=== PATIENT | female | born 1975 | race Two or more races ===

== ENCOUNTER 2017-01-26 15:03 | Inpatient (IN) | payer BC ==
[~2017-01-26] VITALS: Ht 157.5 cm; Wt 85.5 kg
[2017-01-26 15:59] VITALS: BP 118/68
[2017-01-26] MEDS ORDERED: AMPICILLIN/SULBACTAM 1.5 GM in IV NORMAL SALINE 50ML 50 ML IV ONE (16:30)
[2017-01-26] MEDS: ALPRAZolam 1 MG TABLET PO PRN (16:42)
[2017-01-26] MEDS: IPRATRPIUM/ALBUTEROL 0.5/2.5MG 3 ML NEBU. NEB SCH ×2 (16:42→20:44)
[2017-01-26 17:44] LABS: BASO % 0 % (0-3); EOS % 0 % (0-3); LYMPH # 1.6 x10^3/uL (1.0-4.8); LYMPH % 13 % (24-48); MEAN CORPUSCULAR HEMOGLOBIN 30 pg (25-35); MEAN CORPUSCULAR HGB CONC 34 g/dL (31-37); MEAN CORPUSCULAR VOLUME 86 fL (79-100); MONO % 2 % (0-9); NEUT % 84 % (31-73); PLATELET COUNT 243 x10^3/uL (140-400); RED BLOOD COUNT 3.71 x10^6/uL (3.50-5.40); RED CELL DISTRIBUTION WIDTH 13.8 % (11.5-14.5); WHITE BLOOD COUNT 12.2 x10^3/uL (4.0-11.0)
[2017-01-26] MEDS ORDERED: ALPR1TAB2 PO (17:58)
[2017-01-26] MEDS ORDERED: PANT40TA5 PO (17:58)
[2017-01-26] MEDS ORDERED: IV DEXTROSE 5 %-0.45 % NACL 1,000 ML IV SCH (18:00)
[2017-01-26] MEDS ORDERED: PANTOPRAZOLE 40 MG TABLET.DR. PO SCH (18:00)
[2017-01-26] MEDS: PANTOPRAZOLE 40 MG TABLET.DR. PO SCH (18:04)
[2017-01-26 18:17] LABS: ALBUMIN/GLOBULIN RATIO 0.7 (1.0-1.7); CREATININE 1.8 mg/dL (0.6-1.0); TOTAL BILIRUBIN 0.4 mg/dL (0.2-1.0); TOTAL PROTEIN 7.5 g/dL (6.4-8.2)
[2017-01-26 18:18] LABS: POTASSIUM 2.9 mmol/L (3.5-5.1)
[2017-01-26] MEDS ORDERED: POTASSIUM CL 30MEQ D5-0.45NACL 1,000 ML IV PRN (18:30)
[2017-01-26 19:00] VITALS: BP 84/52
[2017-01-26] MEDS: POTASSIUM CL 30MEQ D5-0.45NACL 1,000 ML IV SCH (20:25)
[2017-01-26 22:29] VITALS: BP 94/57
[2017-01-26] MEDS: AMPICILLIN/SULBACTAM 1.5 GM in IV NORMAL SALINE 50ML 50 ML IV SCH (23:45)
[2017-01-27] MEDS ORDERED: TRAZ100T12 PO (00:48)
[2017-01-27] MEDS ORDERED: METH-38 PO (00:48)
[2017-01-27] MEDS ORDERED: CETI10TA22 PO (00:48)
[2017-01-27] MEDS ORDERED: TAPE75TA2 PO (00:48)
[2017-01-27] MEDS ORDERED: MECL25TA3 PO (00:48)
[2017-01-27] MEDS ORDERED: TAPE100T6 PO (00:48)
[2017-01-27] MEDS ORDERED: PROP20TA PO (00:48)
[2017-01-27] MEDS ORDERED: FLUT9.9S NS (00:48)
[2017-01-27] MEDS ORDERED: SUVO20TA PO (00:48)
[2017-01-27] MEDS ORDERED: NALO0.4A3 IJ (00:48)
[2017-01-27] MEDS ORDERED: DICL100G24 TP (00:48)
[2017-01-27] MEDS ORDERED: NAPR375T3 PO (00:48)
[2017-01-27] MEDS ORDERED: PROAIR HFA8.5 GM INH (00:48)
[2017-01-27] MEDS ORDERED: AMIT50TA PO (00:48)
[2017-01-27] MEDS ORDERED: METHOCARBAMOL 750 MG TABLET PO PRN (01:00)
[2017-01-27] MEDS ORDERED: DICLOFENAC SODIUM 1% TOPICAL GEL 100GM TUBE. TP PRN ×2 (01:00→01:15)
[2017-01-27] MEDS ORDERED: NALOXONE HCL IJ PRN (01:00)
[2017-01-27] MEDS ORDERED: NAPROXEN PO PRN (01:00)
[2017-01-27] MEDS ORDERED: PROPRANOLOL HCL PO PRN (01:00)
[2017-01-27] MEDS ORDERED: NON FORMULARY ITEM (Meclizine Hcl 1 TAB) PO SCH (01:00)
[2017-01-27] MEDS ORDERED: NALOXONE 0.4 MG/ML VIAL. IV ONE (01:15)
[2017-01-27] MEDS ORDERED: MECLIZINE HCL 12.5 MG TABLET. PO PRN (01:15)
[2017-01-27] MEDS ORDERED: PROPRANOLOL 10 MG TABLET. PO PRN (01:15)
[2017-01-27] MEDS ORDERED: NAPROXEN 250 MG TABLET PO PRN (01:15)
[2017-01-27] MEDS: ALPRAZolam 1 MG TABLET PO PRN ×2 (01:20→14:22)
[2017-01-27] MEDS ORDERED: NALOXONE 0.4 MG/ML VIAL. IV PRN (01:30)
[2017-01-27] MEDS ORDERED: NAPROXEN 500 MG TABLET PO PRN (01:45)
[2017-01-27 02:39] VITALS: BP 93/59
[2017-01-27] MEDS: AMPICILLIN/SULBACTAM 1.5 GM in IV NORMAL SALINE 50ML 50 ML IV SCH ×4 (06:10→23:34)
--- NOTE | 2017-01-27 06:35 | HP ---
ADMIT DATE: 01/26/2017 CHIEF COMPLAINT: Fever, cough and malaise. HISTORY OF PRESENT ILLNESS: A 41-year-old white female, new patient to me, has had cough and general malaise for 2 weeks and getting worse the last few days. She was seen in our office on 01/25/2017. Chest x-ray showing a right upper lobe infiltrate of fairly severe nature. She was asked to come back in to be evaluated and probably admitted to the hospital for confusion, weakness and severity of illness. She has had some intermittent dysphagia over the last several weeks along with a lot of heartburn, but does not recall any recent vomiting or possible aspiration. She denies hemoptysis, chest pain or other systemic symptoms. PAST MEDICAL HISTORY: Surgically, she has had a cholecystectomy, cervical spine nerve ablation, hysterectomy with 1 ovary removed. No other serious surgeries. Medically, she has a history of multiple sclerosis and sees at the a neurologist and a history of chronic nonmalignant pain and is followed by a pain specialist for which she takes Nucynta and other meds as listed. ALLERGIES: Unknown to drugs. IMMUNIZATIONS: Pneumovax is up-to-date. SOCIAL HISTORY: She has smoked since she was about 15 or 16. She is currently using the vapor system, nondrinker, , not employed. FAMILY HISTORY: Unremarkable. REVIEW OF SYSTEMS: No other complaints. OBJECTIVE: HEENT: ____ cavities and missing teeth present. No pharyngeal lesions. Eyes and ears normal. NECK: Revealed no nodes, masses or thyroid enlargement or bruits. LUNGS: Decreased breath sounds in both bases and right upper lobe. No wheezing or tachypnea is noted. CARDIOVASCULAR: Regular rate. No tachycardia or murmur. ABDOMEN: Soft, benign and nontender. EXTREMITIES: Good pedal and radial pulses, 1+ clubbing is noted. SKIN: Turgor is normal. NEUROLOGIC: She has some halting of her speech, but there are no overt focal findings. Mentation, mental status and cranial nerves appear to be intact. GENITOURINARY AND RECTAL: Deferred. ASSESSMENT: 1. Right upper lobe pneumonia. The possibilities of aspiration certainly must be considered given her dysphagia, acid reflux and neurologic issues. 2. Chronic nonmalignant pain, cervical, on high dose of Nucynta. 3. Chronic tobacco use. 4. History of multiple sclerosis and nonspecific psychiatric disorder. PLAN: IV Unasyn, CT scan, Protonix and evaluation for the possibilities of aspiration as the etiology for this versus underlying pulmonary lesion. ADALGISA HEREDIA MD DR: OLY/hans JOB#: [id number] / [id number]
[2017-01-27 07:00] VITALS: BP 93/56
[2017-01-27] MEDS ORDERED: PANTOPRAZOLE 40 MG TABLET.DR. PO SCH (07:30)
[2017-01-27] MEDS: IPRATRPIUM/ALBUTEROL 0.5/2.5MG 3 ML NEBU. NEB SCH ×4 (07:32→20:03)
--- NOTE | 2017-01-27 08:17 | RAD ---
CT of the chest without contrast, 01/26/2017: History: Right upper lobe pneumonia Noncontrast scans were obtained as requested. No previous studies are available at this time for correlative purposes. The thoracic aorta is unremarkable. The heart is at the upper limits of normal in size. No mediastinal adenopathy is seen. There is a small amount of retained material in the upper thoracic esophagus. There is dense consolidation in the inferolateral aspect of the right upper lobe with air bronchograms. No centrally obstructing bronchial lesion is seen. There is mild infiltrate in the left upper lobe and mild hazy groundglass opacities in the lung bases. No pleural fluid is evident. There is diffuse fatty infiltration of the liver. The gallbladder is surgically absent. IMPRESSION: 1. Dense consolidation in the right upper lobe with additional mild patchy infiltrates in other portions of both lungs, most compatible with pneumonia. 2. Hepatic steatosis . PQRS Compliance Statement: One or more of the following individualized dose reduction techniques were utilized for this examination: 1. Automated exposure control 2. Adjustment of the mA and/or kV according to patient size 3. Use of iterative reconstruction technique
[2017-01-27] MEDS: TAPENTADOL HCL 150 MG PO SCH ×2 (08:19→22:06)
[2017-01-27] MEDS: PANTOPRAZOLE 40 MG TABLET.DR. PO SCH ×2 (08:20→16:43)
[2017-01-27] MEDS: TAPENTADOL HCL PO PRN ×3 (08:21→22:09)
[2017-01-27] MEDS: FLUTICASONE 50MCG/NASAL SPRAY 16GM BOTTLE. NS SCH (08:22)
--- NOTE | 2017-01-27 08:23 | PDOC ---
Provider Note Provider Note vss, no temp, feels a little better w/ pleuritic R upper chest pain- K+ low 2.9 , creat 1.8, ? baseline- ct pending re RUL infiltrate- cont unasyn as poss aspiration etiology, iv fluids - hold nsaid re ckd ADALGISA HEREDIA MD January 27, 2017 08:23
[2017-01-27] MEDS ORDERED: NON FORMULARY ITEM (Fluticasone Propionate (Flonase Allergy Relief) 2 SPRAYS) NS SCH (09:00)
[2017-01-27] MEDS ORDERED: CETIRIZINE HCL 10 MG TABLET. PO SCH (09:00)
[2017-01-27] MEDS: POTASSIUM CL 30MEQ D5-0.45NACL 1,000 ML IV SCH ×2 (09:52→23:34)
[2017-01-27 10:51] VITALS: BP 99/59
[2017-01-27] MEDS: METHOCARBAMOL 750 MG TABLET PO PRN (14:22)
[2017-01-27 15:00] VITALS: BP 106/72
[2017-01-27 19:00] VITALS: BP 94/55
[2017-01-27] MEDS ORDERED: AMITRIPTYLINE HCL 50 MG TABLET PO SCH ×2 (21:00)
[2017-01-27] MEDS: AMITRIPTYLINE HCL 50 MG TABLET PO SCH (22:05)
[2017-01-27] MEDS: traZODone 100 MG TABLET. PO SCH (22:05)
[2017-01-27] MEDS: NON FORMULARY ITEM (Suvorexant (Belsomra) 20 MG) PO SCH (22:06)
[2017-01-27 23:00] VITALS: BP 103/63
[2017-01-28 02:34] VITALS: BP 108/70
[2017-01-28] MEDS: ALPRAZolam 1 MG TABLET PO PRN ×2 (02:36→23:59)
[2017-01-28] MEDS: METHOCARBAMOL 750 MG TABLET PO PRN (02:37)
[2017-01-28 05:08] LABS: CALCIUM 8.5 mg/dL (8.5-10.1); CREATININE 1.2 mg/dL (0.6-1.0); GFR 49.5; POTASSIUM 3.4 mmol/L (3.5-5.1)
[2017-01-28] MEDS: AMPICILLIN/SULBACTAM 1.5 GM in IV NORMAL SALINE 50ML 50 ML IV SCH ×4 (06:23→23:54)
[2017-01-28 07:00] VITALS: BP 94/60
[2017-01-28] MEDS: IPRATRPIUM/ALBUTEROL 0.5/2.5MG 3 ML NEBU. NEB SCH ×4 (07:01→19:48)
[2017-01-28] MEDS: TAPENTADOL HCL PO PRN ×3 (08:26→22:29)
[2017-01-28] MEDS: PANTOPRAZOLE 40 MG TABLET.DR. PO SCH ×2 (08:26→16:56)
[2017-01-28] MEDS: TAPENTADOL HCL 150 MG PO SCH ×2 (08:26→20:14)
[2017-01-28] MEDS: FLUTICASONE 50MCG/NASAL SPRAY 16GM BOTTLE. NS SCH (08:27)
--- NOTE | 2017-01-28 08:47 | PDOC ---
Provider Note Provider Note feels a little better , some prod cough- no temp, renal/K+ better- will have pulm see her re ? bronchscopy re unusual RUL infiltrate, ? aspiration, fb, endobronchial mass- cont ADALGISA Hart MD January 28, 2017 08:47
[2017-01-28 11:00] VITALS: BP 113/71
--- NOTE | 2017-01-28 12:08 | PDOC ---
PULMONARY PROGRESS NOTES Vitals Vital Signs Date Time Temp Pulse Resp B/P (MAP) Pulse Ox O2 Delivery O2 Flow Rate FiO2 01/28/17 11:02 Room Air 01/28/17 11:00 98.2 75 20 113/71 (85) 95 98.2 Labs Laboratory Tests Test 01/26/17 17:30 01/28/17 03:35 White Blood Count 12.2 x10^3/uL (4.0-11.0) Red Blood Count 3.71 x10^6/uL (3.50-5.40) Hemoglobin 11.0 g/dL (12.0-15.5) Hematocrit 32.0 % (36.0-47.0) Mean Corpuscular Volume 86 fL (79-100) Mean Corpuscular Hemoglobin 30 pg (25-35) Mean Corpuscular Hemoglobin Concent 34 g/dL (31-37) Red Cell Distribution Width 13.8 % (11.5-14.5) Platelet Count 243 x10^3/uL (140-400) Neutrophils (%) (Auto) 84 % (31-73) Lymphocytes (%) (Auto) 13 % (24-48) Monocytes (%) (Auto) 2 % (0-9) Eosinophils (%) (Auto) 0 % (0-3) Basophils (%) (Auto) 0 % (0-3) Neutrophils # (Auto) 10.3 x10^3uL (1.8-7.7) Lymphocytes # (Auto) 1.6 x10^3/uL (1.0-4.8) Monocytes # (Auto) 0.3 x10^3/uL (0.0-1.1) Eosinophils # (Auto) 0.0 x10^3/uL (0.0-0.7) Basophils # (Auto) 0.0 x10^3/uL (0.0-0.2) Sodium Level 137 mmol/L (136-145) 142 mmol/L (136-145) Potassium Level 2.9 mmol/L (3.5-5.1) 3.4 mmol/L (3.5-5.1) Chloride Level 99 mmol/L (98-107) 105 mmol/L (98-107) Carbon Dioxide Level 26 mmol/L (21-32) 26 mmol/L (21-32) Anion Gap 12 (6-14) 11 (6-14) Blood Urea Nitrogen 22 mg/dL (7-20) 7 mg/dL (7-20) Creatinine 1.8 mg/dL (0.6-1.0) 1.2 mg/dL (0.6-1.0) Estimated GFR (Cockcroft-Gault) 31.0 49.5 BUN/Creatinine Ratio 12 (6-20) Glucose Level 120 mg/dL (70-99) 130 mg/dL (70-99) Calcium Level 9.0 mg/dL (8.5-10.1) 8.5 mg/dL (8.5-10.1) Total Bilirubin 0.4 mg/dL (0.2-1.0) Aspartate Amino Transf (AST/SGOT) 23 U/L (15-37) Alanine Aminotransferase (ALT/SGPT) 42 U/L (14-59) Alkaline Phosphatase 159 U/L (46-116) Total Protein 7.5 g/dL (6.4-8.2) Albumin 3.0 g/dL (3.4-5.0) Albumin/Globulin Ratio 0.7 (1.0-1.7) Laboratory Tests Test 01/28/17 03:35 Sodium Level 142 mmol/L (136-145) Potassium Level 3.4 mmol/L (3.5-5.1) Chloride Level 105 mmol/L (98-107) Carbon Dioxide Level 26 mmol/L (21-32) Anion Gap 11 (6-14) Blood Urea Nitrogen 7 mg/dL (7-20) Creatinine 1.2 mg/dL (0.6-1.0) Estimated GFR (Cockcroft-Gault) 49.5 Glucose Level 130 mg/dL (70-99) Calcium Level 8.5 mg/dL (8.5-10.1) Medications Active Scripts Medications Dose Route/Sig Max Daily Dose Days Date Category Evzio (Naloxone HCl) 0.4 Mg/0.4 Ml Auto.injct 0.4 Mg IJ PRN PRN 01/27/17 Reported Proair Hfa Inhaler (Albuterol Sulfate) 8.5 Gm Hfa.aer.ad 1 Puff INH PRN Q6HRS PRN 01/27/17 Reported Belsomra (Suvorexant) 20 Mg Tablet 20 Mg PO QHS 01/27/17 Reported Diclofenac Sodium 100 Gm Gel..gram. 100 Gm TP PRN TID PRN 01/27/17 Reported Amitriptyline Hcl 50 Mg Tablet 1-3 Tab PO QHS 01/27/17 Reported Naproxen 375 Mg Tablet 220-660 Mg PO PRN BID PRN 01/27/17 Reported Flonase Allergy Relief (Fluticasone Propionate) 9.9 Ml [place].susp 2 Sprays NS DAILY 01/27/17 Reported Zyrtec (Cetirizine Hcl) 10 Mg Tablet 1 Tab PO DAILY 01/27/17 Reported Meclizine Hcl 25 Mg Tablet 1 Tab PO PRN TID 01/27/17 Reported Propranolol Hcl 20 Mg Tablet 1 Tab PO PRN BID PRN 01/27/17 Reported Trazodone Hcl 100 Mg Tablet 1 Tab PO QHS 01/27/17 Reported Nucynta (Tapentadol Hcl) 75 Mg Tablet 1 Tab PO PRN QID PRN 01/27/17 Reported Nucynta Er (Tapentadol Hcl) 100 Mg Tab.er.12h 150 Mg PO BID 01/27/17 Reported Robaxin-750 (Methocarbamol) 750 Mg Tablet 2 Tab PO PRN TID 01/27/17 Reported Xanax (Alprazolam) 1 Mg Tablet 1 Tab PO PRN BID PRN 01/26/17 Reported Pantoprazole Sodium 40 Mg Tablet. 1 Tab PO BIDAC 01/26/17 Reported Impression . FULL NOTE DICTATED WILL PROCEED WITH BRONCH TODAY RULE OUT POST OBSTRUCTIVE PNEUMONIAE ADILSON HUBBARD MD January 28, 2017 12:08
[2017-01-28] MEDS: IV RINGERS,LACTATED 1000ML 1,000 ML IV SCH ×2 (13:30→23:55)
[2017-01-28] MEDS ORDERED: PROPOFOL 20 ML IV ONE (13:39)
[2017-01-28 15:00] VITALS: BP 116/70
[2017-01-28 19:00] VITALS: BP 110/78
[2017-01-28] MEDS: AMITRIPTYLINE HCL 50 MG TABLET PO SCH (20:13)
[2017-01-28] MEDS: traZODone 100 MG TABLET. PO SCH (20:14)
[2017-01-28] MEDS: NON FORMULARY ITEM (Suvorexant (Belsomra) 20 MG) PO SCH (20:14)
[2017-01-28 22:58] VITALS: BP 121/70
--- NOTE | 2017-01-29 02:38 | CONS ---
DATE OF CONSULTATION: 01/28/2017 ATTENDING PHYSICIAN: Dr. Ricardo Lantigua. CONSULTING PHYSICIAN: Dr. Adilson Hubbard. REASON FOR CONSULTATION: The patient seen in pulmonary consultation at the request of Dr. Lantigua for abnormal CT of the chest revealing consolidated right upper lobe, in addition, the patient has had recurrent bouts of pneumonia. HISTORY OF PRESENT ILLNESS: The patient is a 41-year-old, has had pneumonia according to her ____. She was seen in followup and things had improved. She then had some increasing shortness of breath. She had a repeat chest x-ray, which revealed recurrent pneumonia. Yesterday, she underwent a CT of the chest. I personally reviewed that there is a right upper lobe consolidated mass. There is also patchy infiltrates on the left side. I was asked to see her in consultation. PAST MEDICAL HISTORY: The patient does have a history of possible multiple sclerosis. She is having workup. She is also having some difficulty with dysphagia. PAST SURGICAL HISTORY: Status post cholecystectomy, . She has had previous cervical spine nerve ablation, hysterectomy and oophorectomy. ALLERGIES: No known drug allergies. IMMUNIZATION HISTORY: She is up to date on Pneumovax. SOCIAL HISTORY: She continues to smoke 1 pack of cigarettes a day. She is currently utilizing vapor. She does not work outside of the home. FAMILY HISTORY: Noncontributory. No family history of lung cancer. REVIEW OF SYSTEMS: As indicated above, otherwise, a 10-point system was reviewed and negative. The patient does have poor dentition. She is in the process of seeing a dentist. CURRENT MEDICATION: List was reviewed. Please see the MRAD. PHYSICAL EXAMINATION: GENERAL: The patient was in no respiratory distress. VITAL SIGNS: Stable. O2 saturation was greater than 92%. HEENT: Eyes, the sclerae were nonicteric. NECK: Jugular venous distention was not elevated. No lymphadenopathy. CHEST: Full expansion. LUNGS: Adequate airway flow with no wheezes. CARDIOVASCULAR: Regular rate and rhythm with S1, S2, no S3. ABDOMEN: Soft, nontender, nondistended. EXTREMITIES: No clubbing, cyanosis or edema. NEUROLOGIC: The patient was awake, alert, following commands. A detailed neuro exam was not performed. LABORATORY DATA: Reviewed. White count was elevated. Hemoglobin and hematocrit were noted. Albumin was low upon admission at 3.0. Potassium was low. CT reviewed as indicated above. IMPRESSION: 1. Abnormal CT of the chest, compatible with pneumonia, possibly aspiration. In addition, the patient has a right upper lobe consolidation and possible postobstructive. 2. Suspect aspiration, versus pneumonia related to poor dentition must cover for anaerobic bacteria. 3. Multiple sclerosis. 4. Dysphagia. 5. Tobacco dependence. 6. Status post multiple surgeries as indicated above. 7. Chronic pain, nonmalignant pain syndrome. PLAN: 1. We will proceed with a diagnostic bronchoscopy. Risks, benefits, and alternatives reviewed the patient and she is consented. 2. Continue Unasyn. 3. Pain management per PCP. 4. We will continue nebulized treatments. 5. The patient instructed in the importance of discontinuing tobacco use. 6. The patient will require repeat CT of the chest in 6-8 weeks. 7. We will ask speech to evaluate for possible aspiration. I do appreciate the privilege in sharing in the patient's care. ADILSON HUBBARD MD DR: PATRICIA/hans JOB#: [id number] / [id number]
[2017-01-29] MEDS: AMPICILLIN/SULBACTAM 1.5 GM in IV NORMAL SALINE 50ML 50 ML IV SCH ×3 (06:31→18:12)
[2017-01-29 07:00] VITALS: BP 120/64
[2017-01-29] MEDS: IPRATRPIUM/ALBUTEROL 0.5/2.5MG 3 ML NEBU. NEB SCH ×4 (07:14→20:23)
--- NOTE | 2017-01-29 08:07 | PDOC ---
Provider Note Provider Note stii afeb/ vss, no new sxs- bronch done , results na, cult pending- could go home on augmentin if no endobronchial lesions were present ADALGISA HEREDIA MD January 29, 2017 08:07
[2017-01-29] MEDS: PANTOPRAZOLE 40 MG TABLET.DR. PO SCH ×2 (08:38→16:30)
[2017-01-29] MEDS: FLUTICASONE 50MCG/NASAL SPRAY 16GM BOTTLE. NS SCH (08:38)
[2017-01-29] MEDS: TAPENTADOL HCL 150 MG PO SCH ×2 (08:39→21:29)
[2017-01-29 10:54] VITALS: BP 122/66
[2017-01-29] MEDS: TAPENTADOL HCL PO PRN ×3 (12:34→21:29)
--- NOTE | 2017-01-29 13:44 | PDOC ---
PULMONARY PROGRESS NOTES Subjective PT FEELS BETTER Vitals Vital Signs Date Time Temp Pulse Resp B/P (MAP) Pulse Ox O2 Delivery O2 Flow Rate FiO2 01/29/17 10:57 97 Room Air 01/29/17 10:54 98.8 74 20 122/66 (84) 98.8 01/28/17 14:02 5 ROS: No Nausea, No Chest Pain, No Abdominal Pain, No Increase Cough General: Alert Lungs: Clear Cardiovascular: S1, S2 Abdomen: Soft Neuro Exam: Alert Extremities: No Edema Skin: Warm Labs Laboratory Tests Test 01/28/17 03:35 Sodium Level 142 mmol/L (136-145) Potassium Level 3.4 mmol/L (3.5-5.1) Chloride Level 105 mmol/L (98-107) Carbon Dioxide Level 26 mmol/L (21-32) Anion Gap 11 (6-14) Blood Urea Nitrogen 7 mg/dL (7-20) Creatinine 1.2 mg/dL (0.6-1.0) Estimated GFR (Cockcroft-Gault) 49.5 Glucose Level 130 mg/dL (70-99) Calcium Level 8.5 mg/dL (8.5-10.1) Medications Active Scripts Medications Dose Route/Sig Max Daily Dose Days Date Category Evzio (Naloxone HCl) 0.4 Mg/0.4 Ml Auto.injct 0.4 Mg IJ PRN PRN 01/27/17 Reported Proair Hfa Inhaler (Albuterol Sulfate) 8.5 Gm Hfa.aer.ad 1 Puff INH PRN Q6HRS PRN 01/27/17 Reported Belsomra (Suvorexant) 20 Mg Tablet 20 Mg PO QHS 01/27/17 Reported Diclofenac Sodium 100 Gm Gel..gram. 100 Gm TP PRN TID PRN 01/27/17 Reported Amitriptyline Hcl 50 Mg Tablet 1-3 Tab PO QHS 01/27/17 Reported Naproxen 375 Mg Tablet 220-660 Mg PO PRN BID PRN 01/27/17 Reported Flonase Allergy Relief (Fluticasone Propionate) 9.9 Ml [place].susp 2 Sprays NS DAILY 01/27/17 Reported Zyrtec (Cetirizine Hcl) 10 Mg Tablet 1 Tab PO DAILY 01/27/17 Reported Meclizine Hcl 25 Mg Tablet 1 Tab PO PRN TID 01/27/17 Reported Propranolol Hcl 20 Mg Tablet 1 Tab PO PRN BID PRN 01/27/17 Reported Trazodone Hcl 100 Mg Tablet 1 Tab PO QHS 01/27/17 Reported Nucynta (Tapentadol Hcl) 75 Mg Tablet 1 Tab PO PRN QID PRN 01/27/17 Reported Nucynta Er (Tapentadol Hcl) 100 Mg Tab.er.12h 150 Mg PO BID 01/27/17 Reported Robaxin-750 (Methocarbamol) 750 Mg Tablet 2 Tab PO PRN TID 01/27/17 Reported Xanax (Alprazolam) 1 Mg Tablet 1 Tab PO PRN BID PRN 01/26/17 Reported Pantoprazole Sodium 40 Mg Tablet.dr 1 Tab PO BIDAC 01/26/17 Reported Impression . 1. Abnormal CT of the chest, compatible with pneumonia, possibly aspiration. In addition, the patient has a right upper lobe consolidation and possible postobstructive. 2. Suspect aspiration, versus pneumonia related to poor dentition must cover for anaerobic bacteria. 3. Multiple sclerosis. 4. Dysphagia. 5. Tobacco dependence. 6. Status post multiple surgeries as indicated above. 7. Chronic pain, nonmalignant pain syndrome. Plan . OK TO D/C IN AM ON AUGMENTIN FOLLOW UP WITH ME IN OFFICE6-8 WEEKS 1. So far BAL culture negative 2. Continue Unasyn. 3. Pain management per PCP. 4. We will continue nebulized treatments. 5. The patient instructed in the importance of discontinuing tobacco use. 6. The patient will require repeat CT of the chest in 6-8 weeks. 7. We will ask speech to evaluate for possible aspiration. ADILSON HUBBARD MD January 29, 2017 13:44
[2017-01-29 15:00] VITALS: BP 112/76
--- NOTE | 2017-01-29 16:16 | PATHOLOGY ---
CYTOPATHOLOGY REPORT CLINICAL HISTORY: Pneumonia. SPECIMEN(S) RECEIVED: A.Bronchoalveolar lavage, RUL FINAL DIAGNOSIS: Right upper lobe bronchoalveolar lavage, ThinPrep: - No malignant cells identified. - Focally reactive bronchial epithelial cells, squamous epithelial cells, and pulmonary macrophages identified within a background of obscuring and degenerating acute inflammatory cells. Small budding yeast focally identified consistent with Cielo species. PATHOLOGIST: Tito Rosas M.D. REPORT ELECTRONICALLY SIGNED BY: Tito Rosas M.D. DATE/TIME: 01/29/2017 16:15 GROSS PATHOLOGY: A. Bronchoalveolar lavage, RUL: The specimen is submitted unfixed, labeled "Yovanny Up". Received by the Cytology Department is 5 mL of cloudy pink fluid. One ThinPrep slide was prepared. (clt 01.28.2017) [employer] CUTTER HELPER(S): KAM Rollins(ASCP) INITIAL CPT CODE(S): A; 72265 Professional services performed [place] [place] [address] Technical services performed by [facility] at [address] [place] [address], [address] [address]. PATIENT: YOVANNY UP /AGE: 602/16/1975 (Age: 41) SEX: F PATIENT #: [id number] ALT CASE #: SPECIMEN COLLECTION DATE: 01/26/2017 SPECIMEN RECEIVED DATE: 01/28/[address] [facility] [address] [place] [address], [address] [place] [address] PHONE: [phone] DIRECTOR: Gerson Ramon M.D. * * * END OF REPORT * * *
[2017-01-29] MEDS: METHOCARBAMOL 750 MG TABLET PO PRN (18:05)
[2017-01-29 19:00] VITALS: BP 144/89
[2017-01-29] MEDS: AMITRIPTYLINE HCL 50 MG TABLET PO SCH (21:29)
[2017-01-29] MEDS: traZODone 100 MG TABLET. PO SCH (21:29)
[2017-01-29] MEDS: NON FORMULARY ITEM (Suvorexant (Belsomra) 20 MG) PO SCH (21:29)
[2017-01-29 23:01] VITALS: BP 114/84
[2017-01-30] MEDS: AMPICILLIN/SULBACTAM 1.5 GM in IV NORMAL SALINE 50ML 50 ML IV SCH ×2 (00:11→05:57)
[2017-01-30] MEDS: ALPRAZolam 1 MG TABLET PO PRN (00:14)
[2017-01-30] MEDS: IPRATRPIUM/ALBUTEROL 0.5/2.5MG 3 ML NEBU. NEB SCH (06:55)
[2017-01-30 07:00] VITALS: BP 105/66
--- NOTE | 2017-01-30 09:49 | DISCH ---
DISCHARGE INSTRUCTIONS Condition on Discharge Condition on Discharge: Stable Activity After Discharge Activity Instructions for Disc: No restrictions Diet after Discharge Diet after Discharge: Regular Follow-Up Follow up with: dr sabino Nichols w ADALGISA HEREDIA MD January 30, 2017 09:49
--- NOTE | 2017-01-30 09:54 | PDOC ---
Provider Note Provider Note [id number] ADALGISA HEREDIA MD January 30, 2017 09:54
[2017-01-30] MEDS: TAPENTADOL HCL 150 MG PO SCH (10:06)
[2017-01-30] MEDS: FLUTICASONE 50MCG/NASAL SPRAY 16GM BOTTLE. NS SCH (10:06)
[2017-01-30] MEDS: PANTOPRAZOLE 40 MG TABLET.DR. PO SCH (10:06)
[2017-01-30] MEDS: TAPENTADOL HCL PO PRN (10:13)
--- NOTE | 2017-01-30 18:28 | DS ---
DATE OF DISCHARGE: 01/30/2017 HOSPITAL SUMMARY: A 41-year-old white female admitted with dense right upper lobe infiltrate, COPD, smoking and had dental problems consistent with the possibility of aspiration pneumonia. CBC was normal. Chemistry profile showed a creatinine up to 1.8, which came down to 1.2 with hydration and the potassium was low at 2.9, which came up to 3.4. Blood and sputum cultures had no growth and the AFB smears are pending at this time. CT scan of the chest showed no endobronchial mass or specific mass lesions, but there is dense consolidation in the right upper lobe with patchy infiltrates in the upper outer portions of both lungs compatible with pneumonia. Fatty liver was seen as well. She was treated with IV Unasyn and respiratory treatments, and she chronically improved and was afebrile throughout the hospital stay with good oxygen saturations. Dr. Thompson performed bronchoscopy because of the possibility of endobronchial lesion or obstruction and no apparent lesions or foreign bodies were seen, but bronchial washing showed no malignant cells or foreign bodies. Bed side swallow evaluation was unremarkable. It was felt that the likelihood of her pneumonia was likely from significant dental problems and possibility of anaerobic infection present there along with chronic tobacco use. She will take Augmentin as an outpatient for one more week and follow up with me for chest x-ray. FINAL DIAGNOSES: 1. Right upper lobe pneumonia, likely secondary to significant dental disease. 2. Chronic tobacco use. 3. Hypokalemia, resolved. 4. Acute renal failure, resolved. OPERATIONS AND PROCEDURES: Bronchoscopy. COMPLICATIONS: None. CONSULTATIONS: Dr. Thompson. DISPOSITION: She will take Augmentin 875 twice a day for 1 more week, rest of home meds remained the same. She is taking chronic narcotics and other meds per pain her doctors, which increased the risk of airway compromise and aspiration, and she knows that continued dental problems and tobacco use contribute to this problem as well. We will see her in 1 week for repeat chest x-ray and follow to resolution. ADALGISA HEREDIA MD DR: OLY/hans JOB#: [id number] / [id number]
== END 2017-01-30 11:00 | disposition home or self-care (01) | DRG 167 ==
LOC: 5 SOUTH 15:23
PROVIDERS: ADMIT Family Medicine; ATTEND Family Medicine
PROC: 0B9C8ZX Drainage of Right Upper Lung Lobe, Via Natural or Artificial Opening Endoscopic, Diagnostic (ICD-10-PCS; principal; 2017-01-26)
DX: J18.9 Pneumonia, unspecified organism (principal); N17.9 Acute kidney failure, unspecified; F17.200 Nicotine dependence, unspecified, uncomplicated; K21.9 Gastro-esophageal reflux disease without esophagitis; G89.29 Other chronic pain; E87.6 Hypokalemia; F17.210 Nicotine dependence, cigarettes, uncomplicated; R13.10 Dysphagia, unspecified; G35 Multiple sclerosis; K08.9 Disorder of teeth and supporting structures, unspecified; Z87.01 Personal history of pneumonia (recurrent); Z90.721 Acquired absence of ovaries, unilateral; Z90.710 Acquired absence of both cervix and uterus; Z90.49 Acquired absence of other specified parts of digestive tract
CPT/HCPCS: 31622; 36415; 71250; 80048; 80053; 85027; 87040; 87070; 87102; 87116; 87205; 94250; 94640; 94760; J0295; J2704; J7120; J7620; 92610

== ENCOUNTER 2017-02-18 17:31 | Emergency (ER) | payer SELFPAY ==
[~2017-02-18 17:31] MED LIST: ALPR1TAB2 PO; AMIT50TA PO; CETI10TA22 PO; DICL100G24 TP; FLUT9.9S NS; MECL25TA3 PO; METH-38 PO; NALO0.4A3 IJ; NAPR375T3 PO; PANT40TA5 PO; PROAIR HFA8.5 GM INH; PROP20TA PO; SUVO20TA PO; TAPE100T9 PO; TAPE75TA3 PO; TRAZ100T12 PO
[2017-02-18] MEDS ORDERED: IV NORMAL SALINE 1000ML BAG 1,000 ML IV ONE (17:45)
--- NOTE | 2017-02-18 18:09 | PHYS DOC ---
Past Medical History Past Medical History: Migraines, Seizure Additional Past Medical Histor: MS, FIBROMYALGIA, CHRONIC PAIN IN THE LOWER BACK AND BILATERAL KNEES Past Surgical History: Hysterectomy Additional Past Surgical Histo: RT ARTHROSCOPIC KNEE, CHRONIC NECK PAIN Additional Information: VAPE Alcohol Use: None Drug Use: None Adult General Chief Complaint Chief Complaint: SEIZURE HPI HPI Patient is a 42 year old female who presents with sitting up history of seizure the spouse found the patient lying on the ground called EMS. Patient apparently was postictal but is now, round and is answering questions. She was noted to have a small abrasion to the inside of her cheek but no tongue laceration. She is a poor historian denies head injury or trauma but does report that she had pneumonia that was treated with Augmentin and is still on it this was diagnosed with last 3 weeks. Patient is a recent diagnosis of multiple sclerosis and seasonal unknown urologist NKU she says that she has seizure disorder but had an EEG which she cannot confirm actually showed any abnormalities that she admits she doesn't take seizure medications so this is rather perplexing. Patient denies any headache or stiff neck or neck pain nausea vomiting blurry vision or chest pain shortness of breath abdominal pain or fever. Review of Systems Review of Systems Constitutional: Denies fever or chills [] Eyes: Denies change in visual acuity, redness, or eye pain [] HENT: Denies nasal congestion or sore throat [] Respiratory: Denies cough or shortness of breath [] Cardiovascular: No additional information not addressed in HPI [] GI: Denies abdominal pain, nausea, vomiting, bloody stools or diarrhea [] : Denies dysuria or hematuria [] Musculoskeletal: Denies back pain or joint pain [] Integument: Denies rash or skin lesions [] Neurologic: Denies headache, focal weakness or sensory changes [] Endocrine: Denies polyuria or polydipsia [ Systems negative except as presented in history of present illness] Current Medications Current Medications Current Medications Medications (Trade) Dose Ordered Sig/Lacey Start Time Stop Time Status Last Admin Dose Admin Ondansetron HCl (Zofran) 4 mg 1X ONCE 02/18/17 19:45 02/18/17 19:46 DC 02/18/17 19:40 4 MG Sodium Chloride 1,000 ml @ 1,000 mls/hr 1X ONCE 02/18/17 17:45 02/18/17 18:44 DC 02/18/17 17:57 1,000 MLS/HR Allergies Allergies Allergies Coded Allergies Type Severity Reaction Last Updated Verified No Known Allergies Allergy Unknown 01/28/17 Yes Physical Exam Physical Exam Constitutional: Well developed, well nourished, no acute distress, non-toxic appearance. [] HENT: Normocephalic, atraumatic, bilateral external ears normal, oropharynx moist, no oral exudates, nose normal. [] Eyes: PERRLA, EOMI, conjunctiva normal, no discharge. [] Neck: Normal range of motion, no tenderness, supple, no stridor. [] Cardiovascular:Heart rate regular rhythm, no murmur [] Lungs & Thorax: Bilateral breath sounds clear to auscultation [] Abdomen: Bowel sounds normal, soft, no tenderness, no masses, no pulsatile masses. [] Skin: Warm, dry, no erythema, no rash. [] Back: No tenderness, no CVA tenderness. [] Extremities: No tenderness, no cyanosis, no clubbing, ROM intact, no edema. [] Neurologic: Alert and oriented X 3, normal motor function, normal sensory function, no focal deficits noted. [] Psychologic: Affect normal, judgement normal, mood normal. [] Current Patient Data Vital Signs Vital Signs Date Time Temp Pulse Resp B/P (MAP) Pulse Ox O2 Delivery O2 Flow Rate FiO2 02/18/17 17:44 98.8 86 18 163/91 (115) 97 Room Air 98.8 Lab Values Laboratory Tests Test 02/18/17 18:10 White Blood Count 5.7 x10^3/uL (4.0-11.0) Red Blood Count 3.96 x10^6/uL (3.50-5.40) Hemoglobin 11.3 g/dL (12.0-15.5) L Hematocrit 34.8 % (36.0-47.0) L Mean Corpuscular Volume 88 fL (79-100) Mean Corpuscular Hemoglobin 29 pg (25-35) Mean Corpuscular Hemoglobin Concent 33 g/dL (31-37) Red Cell Distribution Width 13.3 % (11.5-14.5) Platelet Count 214 x10^3/uL (140-400) Neutrophils (%) (Auto) 57 % (31-73) Lymphocytes (%) (Auto) 38 % (24-48) Monocytes (%) (Auto) 5 % (0-9) Eosinophils (%) (Auto) 0 % (0-3) Basophils (%) (Auto) 0 % (0-3) Neutrophils # (Auto) 3.3 x10^3uL (1.8-7.7) Lymphocytes # (Auto) 2.2 x10^3/uL (1.0-4.8) Monocytes # (Auto) 0.3 x10^3/uL (0.0-1.1) Eosinophils # (Auto) 0.0 x10^3/uL (0.0-0.7) Basophils # (Auto) 0.0 x10^3/uL (0.0-0.2) Sodium Level 145 mmol/L (136-145) Potassium Level 3.6 mmol/L (3.5-5.1) Chloride Level 108 mmol/L (98-107) H Carbon Dioxide Level 31 mmol/L (21-32) Anion Gap 6 (6-14) Blood Urea Nitrogen 9 mg/dL (7-20) Creatinine 1.0 mg/dL (0.6-1.0) Estimated GFR (Cockcroft-Gault) 60.8 BUN/Creatinine Ratio 9 (6-20) Glucose Level 105 mg/dL (70-99) H Calcium Level 9.1 mg/dL (8.5-10.1) Total Bilirubin 0.2 mg/dL (0.2-1.0) Aspartate Amino Transferase (AST) 17 U/L (15-37) Alanine Aminotransferase (ALT) 20 U/L (14-59) Alkaline Phosphatase 83 U/L (46-116) Total Protein 7.4 g/dL (6.4-8.2) Albumin 3.2 g/dL (3.4-5.0) L Albumin/Globulin Ratio 0.8 (1.0-1.7) L Urine Opiates Screen Pos (NEG) Urine Methadone Screen Neg (NEG) Urine Barbiturates Neg (NEG) Urine Phencyclidine Screen Neg (NEG) Urine Amphetamine/Methamphetamine Neg (NEG) Urine Benzodiazepines Screen Neg (NEG) Urine Cocaine Screen Neg (NEG) Urine Cannabinoids Screen Neg (NEG) Ethyl Alcohol Level < 10 mg/dL (0-10) Urine Ethyl Alcohol Neg (NEG) Laboratory Tests 6/15/17 18:10 Laboratory Tests 02/18/17 18:10 EKG EKG ] Radiology/Procedures Radiology/Procedures Chest x-ray: Negative my interpretation independently reviewed by me CT head: Negative per radiology report [] Course & Med Decision Making Course & Med Decision Making Pertinent Labs and Imaging studies reviewed. (See chart for details) Labs were unremarkable. CT head negative chest x-ray negative patient's mentation cleared dramatically arrived I did ask a few more questions and he did find her laying on the hallway floor no reported history of trauma patient had a one-week induration EEG done at there was no prescription of antiseizure medication after that. Patient feels improved and wants to go home. She does report that she recently had a bronchoscopy for some abnormality seen in the right upper lobe which looks clear today on x-ray. Patient does have some chronic element of upper epigastric discomfort that's chronic in nature she is on a PPI will add Carafate to that but she is otherwise stable and recommended she sees her PCP tomorrow. [] Dragon Disclaimer Dragon Disclaimer This electronic medical record was generated, in whole or in part, using a voice recognition dictation system. Departure Departure Referrals: ADALGISA HEREDIA MD (PCP) EMILIO CÁRDENAS MD Feb 18, 2017 18:09
[2017-02-18 18:15] LABS: BASO % 0 % (0-3); EOS % 0 % (0-3); HEMATOCRIT 34.8 % (36.0-47.0); HEMOGLOBIN 11.3 g/dL (12.0-15.5); LYMPH # 2.2 x10^3/uL (1.0-4.8); LYMPH % 38 % (24-48); MEAN CORPUSCULAR HEMOGLOBIN 29 pg (25-35); MEAN CORPUSCULAR HGB CONC 33 g/dL (31-37); MEAN CORPUSCULAR VOLUME 88 fL (79-100); MONO % 5 % (0-9); NEUT % 57 % (31-73); PLATELET COUNT 214 x10^3/uL (140-400); RED BLOOD COUNT 3.96 x10^6/uL (3.50-5.40); RED CELL DISTRIBUTION WIDTH 13.3 % (11.5-14.5); WHITE BLOOD COUNT 5.7 x10^3/uL (4.0-11.0)
[2017-02-18 18:23] LABS: BARBITURATES NEG (NEG); BENZODIAZEPINES NEG (NEG); CANNABINOIDS NEG (NEG); COCAINE NEG (NEG); METHADONE NEG (NEG); OPIATES POS (NEG); PHENCYCLIDINE NEG (NEG)
[2017-02-18 18:41] LABS: ALBUMIN 3.2 g/dL (3.4-5.0); ALBUMIN/GLOBULIN RATIO 0.8 (1.0-1.7); CALCIUM 9.1 mg/dL (8.5-10.1); GFR 60.8; POTASSIUM 3.6 mmol/L (3.5-5.1); TOTAL BILIRUBIN 0.2 mg/dL (0.2-1.0); TOTAL PROTEIN 7.4 g/dL (6.4-8.2)
--- NOTE | 2017-02-18 18:43 | RAD ---
CT head without intravenous contrast History: Altered mental status, possible seizure. Comparison: None. Technique: Axial images are obtained of the head from the skull base through the vertex without IV contrast. Exposure: One or more of the following individualized dose reduction techniques were utilized for this examination: 1. Automated exposure control 2. Adjustment of the mA and/or kV according to patient size 3. Use of iterative reconstruction technique Findings: The ventricles are appropriate in size, shape, and location for the patient's age. No obvious intracranial mass, mass-effect, midline shift, hemorrhage or obvious acute infarction is identified. Basilar cisterns are patent. Bone windows demonstrate no acute calvarial abnormality. The visualized paranasal sinuses appear clear. Impression: No acute intracranial process. Please note that CT can be relatively insensitive to acute ischemic infarction for up to 24 hours after symptom onset. Electronically signed by: Colby Ross MD (02/18/2017 6:39 PM)
[2017-02-18] MEDS ORDERED: ONDANSETRON PF 4 MG/2 ML VIAL. IV ONE (19:45)
[2017-02-18] MEDS ORDERED: SUCR1TAB35 PO (19:56)
[2017-02-18 20:05] VITALS: BP 132/82
--- NOTE | 2017-02-19 07:56 | RAD ---
Portable chest, 02/18/2017: History: Cough, syncope, back pain The heart size and pulmonary vascularity are normal. The lungs are clear. There is no evidence of pleural fluid. IMPRESSION: No acute cardiopulmonary abnormality is detected.
== END 2017-02-18 20:15 | disposition home or self-care (01) ==
LOC: ER 17:31
DX: R56.9 Unspecified convulsions (principal); S00.81XA Abrasion of other part of head, initial encounter; G43.909 Migraine, unspecified, not intractable, without status migrainosus; G35 Multiple sclerosis; M79.7 Fibromyalgia; G89.29 Other chronic pain; Z90.710 Acquired absence of both cervix and uterus; X58.XXXA Exposure to other specified factors, initial encounter; Y93.89 Activity, other specified; Y99.8 Other external cause status; Y92.89 Other specified places as the place of occurrence of the external cause
CPT/HCPCS: 36415; 70450; 71010; 80053; 80305; 80320; 85027; 96361; 96374; 99285; J2405; J7030; G0480; G0481

== ENCOUNTER 2017-05-19 15:33 | Emergency (ER) | payer SELFPAY ==
[~2017-05-19] VITALS: Ht 160 cm; Wt 72.6 kg
[~2017-05-19 15:33] MED LIST changes: +NAPR-695 PO; -NAPR375T3 PO; +SUCR1TAB35 PO
--- NOTE | 2017-05-19 16:09 | PHYS DOC ---
Past Medical History Past Medical History: Migraines, Seizure Additional Past Medical Histor: MS, FIBROMYALGIA, CHRONIC PAIN IN THE LOWER BACK AND BILATERAL KNEES Past Surgical History: Hysterectomy Additional Past Surgical Histo: RT ARTHROSCOPIC KNEE, CHRONIC NECK PAIN Alcohol Use: None Drug Use: None Adult General Chief Complaint Chief Complaint: KNEE INJURY [facility] HPI Patient is a 42 year old female presents to the emergency department stating that on Wednesday she was out in the yard carrying her grandchild when she stepped into a hole with her left leg. She states that she tried to compensate for the fall when she stepped on her right recommended immobilization falling. She states that she is having right knee, right tib-fib, right ankle and right foot pain. Patient states she has increased pain with ambulation. She states she has undescended in another nonsteroidal anti-inflammatory. Review of Systems Review of Systems Constitutional: Denies fever or chills [] Eyes: Denies change in visual acuity, redness, or eye pain [] HENT: Denies nasal congestion or sore throat [] Respiratory: Denies cough or shortness of breath [] Cardiovascular: No additional information not addressed in HPI [] GI: Denies abdominal pain, nausea, vomiting, bloody stools or diarrhea [] : Denies dysuria or hematuria [] Musculoskeletal: Denies back pain. Right knee, right tib-fib, right ankle, right foot pain and discomfort. Integument: Denies rash or skin lesions [] Neurologic: Denies headache, focal weakness or sensory changes [] Endocrine: Denies polyuria or polydipsia [] Allergies Allergies Allergies Coded Allergies Type Severity Reaction Last Updated Verified No Known Allergies Allergy Unknown 01/28/17 Yes Physical Exam Physical Exam Constitutional: Well developed, well nourished, no acute distress, non-toxic appearance. [] HENT: Normocephalic, atraumatic, bilateral external ears normal, oropharynx moist, no oral exudates, nose normal. [] Eyes: PERRLA, EOMI, conjunctiva normal, no discharge. [] Neck: Normal range of motion, no tenderness, supple, no stridor. [] Cardiovascular:Heart rate regular rhythm Lungs & Thorax: No respiratory distress noted Skin: Warm, dry, no erythema, no rash. [] Back: No tenderness Extremities: Right knee, right tib-fib, right ankle, right foot tenderness, no cyanosis, no clubbing, ROM intact, no edema. Peripheral pulses 2+ cap refill brisk less than 2 seconds. Patient with tenderness noted on the right medial and lateral knee discomfort. Patient was also noted to have tenderness along the lateral medial part of the ankle. Entire foot appears to be tender as well. No bruising or discoloration and no swelling noted. Neurologic: Alert and oriented X 3, normal motor function, normal sensory function, no focal deficits noted. [] Psychologic: Affect normal, judgement normal, mood normal. [] Current Patient Data Vital Signs Vital Signs Date Time Temp Pulse Resp B/P (MAP) Pulse Ox O2 Delivery O2 Flow Rate FiO2 05/19/17 16:11 98.2 81 20 95 Room Air 98.2 EKG EKG [] Radiology/Procedures Radiology/Procedures [] Course & Med Decision Making Course & Med Decision Making Pertinent Labs and Imaging studies reviewed. (See chart for details) Patient was noted to have a spiral fracture of the tibia. Dr. Perales happened to be in the department and reviewed the x-rays as well. He does not recommend any type of immobilization device. Patient will be placed on crutches with recommendations to follow-up with Dr. Perales tomorrow for a cam boot. Patient states that she has a orthopedic appointment on Wednesday in which she can follow- up with. Patient has RA on a opioid pain medication as well as a nonsteroidal anti-inflammatory at home. She can continue these medications there. Recommended ice packs on 20 minutes off 20 minutes several times today. Patient be discharged home in stable condition signs and symptoms to return back to emergency department as been provided. [] Dragon Disclaimer Dragon Disclaimer This electronic medical record was generated, in whole or in part, using a voice recognition dictation system. Departure Departure Impression: Primary Impression: Fracture of tibia, right, closed Disposition: HOME, SELF-CARE Condition: STABLE Referrals: ADALGISA HEREDIA MD (PCP) JOHANNA PERALES II, MD Patient Instructions: Crutch Use, [id number], Tibial Fracture, Adult Additional Instructions: Activity as tolerated. Ice packs on 20 minutes off 20 minutes several times a day. Elevation as much as possible. Use the crutches to help with ambulation. Follow-up with tomorrow. Keep your follow-up appointment with your orthopedic on Wednesday. Return back to emergency prior signs symptoms of become worse. Problem Qualifiers Primary Impression: Fracture of tibia, right, closed Encounter type: initial encounter Tibia location: proximal Fracture morphology: unspecified fracture morphology Qualified Codes: S82.101A - Unspecified fracture of upper end of right tibia, initial encounter for closed fracture MARTA GALARZA APRN May 19, 2017 16:09
[2017-05-19 16:11] VITALS: BP 118/78
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
== END 2017-05-19 16:43 | disposition home or self-care (01) ==
LOC: ER 15:33
DX: S82.201A Unspecified fracture of shaft of right tibia, initial encounter for closed fracture (principal); G43.909 Migraine, unspecified, not intractable, without status migrainosus; G89.29 Other chronic pain; W19.XXXA Unspecified fall, initial encounter; Y93.89 Activity, other specified; Y99.8 Other external cause status; Y92.096 Garden or yard of other non-institutional residence as the place of occurrence of the external cause
CPT/HCPCS: 73562; 73590; 73610; 73630; 99284